=== PATIENT | male | born 1985 | race Caucasian/White ===

== ENCOUNTER 2018-01-05 01:50 | Emergency (ER) | payer MEDICAID ==
[~2018-01-05] VITALS: Ht 188 cm; Wt 100.0 kg
[2018-01-05] MEDS ORDERED: LIDOCAINE-MPF 2%, 2ML SQ ONE (02:30)
[2018-01-05] MEDS ORDERED: LIDOCAINE-MPF 2%, 2ML ONE (02:31)
[2018-01-05 03:28] VITALS: BP 125/74
== END 2018-01-05 03:34 | disposition home or self-care (01) ==
LOC: ED 03:28
DX: S61.211A Laceration without foreign body of left index finger without damage to nail, initial encounter (principal); Y04.8XXA Assault by other bodily force, initial encounter; Y93.89 Activity, other specified; Y92.009 Unspecified place in unspecified non-institutional (private) residence as the place of occurrence of the external cause; Y99.8 Other external cause status
CPT/HCPCS: 12001; 73140; 99284; J3490

== ENCOUNTER 2018-06-02 14:34 | Emergency (ER) | payer MEDICAID ==
--- NOTE | 2018-06-02 14:40 | NUR ---
NO ANSWER TO NAME CALLED IN LOBBY.
--- NOTE | 2018-06-02 14:47 | NUR ---
NO ANSWER TO NAME CALLED IN LOBBY.
--- NOTE | 2018-06-02 14:54 | NUR ---
NO ANSWER WHEN CALLED FOR TRIAGE X1
== END 2018-06-02 15:09 | disposition left against medical advice (07) ==
LOC: ED 15:05
DX: M79.662 Pain in left lower leg (principal); Z53.21 Procedure and treatment not carried out due to patient leaving prior to being seen by health care provider

== ENCOUNTER 2018-06-02 16:03 | Emergency (ER) | payer MEDICAID ==
[~2018-06-02] VITALS: Ht 188 cm; Wt 76.0 kg
[2018-06-02 16:09] VITALS: BP 129/76
--- NOTE | 2018-06-02 16:17 | NUR ---
PT IS AMBULATORY WITHOUT ASSIST.
[2018-06-02] MEDS ORDERED: CEFAZOLIN 1,000 MG IM ONE (17:00)
[2018-06-02] MEDS ORDERED: CEFAZOLIN 1,000 MG ONE (17:00)
[2018-06-02] MEDS ORDERED: CEFAZOLIN PMX 1GM/50ML 50 ML IVPB ONE (17:00)
[2018-06-02] MEDS ORDERED: LIDOCAINE-MPF 1%, 5ML ONE (17:00)
[2018-06-02] MEDS ORDERED: LIDOCAINE-MPF 1%, 5ML INFIL ONE (17:00)
[2018-06-02] MEDS ORDERED: BUPIVACAINE/PF 0.25% INFIL ONE (17:00)
[2018-06-02] MEDS ORDERED: BACITRACIN ZINC OINT 500U/GM, 0.9 GM ONE ×2 (18:06→18:24)
== END 2018-06-02 18:45 | disposition home or self-care (01) ==
LOC: ED 18:39
DX: S81.812A Laceration without foreign body, left lower leg, initial encounter (principal); W13.2XXA Fall from, out of or through roof, initial encounter; Y93.89 Activity, other specified; Y92.410 Unspecified street and highway as the place of occurrence of the external cause; Y99.8 Other external cause status
CPT/HCPCS: 12034; 70450; 73564; 96372; 99284; J0690